=== PATIENT | female | born 1975 | race Caucasian/White ===

== ENCOUNTER 2016-08-17 08:52 | Day surgery (SDC) | payer BC, OTHER ==
[2016-08-17] MEDS ORDERED: LIDOCAINE HCL 1%/EPI 1:100,000 - 20 ML VIAL ONE (09:30)
[2016-08-17] MEDS ORDERED: SODIUM BICARBONATE 8.4% - 50 ML VIAL ONE (09:31)
--- NOTE | 2016-08-17 10:29 | GEN.OPNOTE ---
Operative Note Surgery Date: 08/17/16 Preoperative Diagnosis: 1 cm skin lesion left lower leg. Postoperative Diagnosis: 1 cm skin lesion left lower leg. Procedure: Excision 1 cm skin lesion left lower leg. Surgeon: Rodolfo Perez MD Anesthesia Type: Local (1% Xylocaine with epinephrine and sodium bicarbonate.) Estimated Blood Loss (mL): 2 Fluids: No IV started. Pathology: Specimen to pathology. Short stitch superior and long stitch lateral. Indications: Cracking and scaling skin lesion left lower lateral leg for surgical excision. Findings: Skin lesion as above. Complications: None. Operative Summary: The patient was taken to the operating room and placed on the operating table in the supine position. Surgical timeout was done. The area was infiltrated with 1% Xylocaine with epinephrine and sodium bicarbonate. An elliptical incision was made to excise the entire lesion. This was carried down into the subcutaneous tissue. The specimen was amputated and marked with a short stitch superiorly and a long stitch laterally. Hemostasis was assured. The skin edges were undermined. The deep dermis was closed with inverted interrupted 2-0 Vicryl's. The skin was closed with running interlocking 3-0 Prolene followed by Mastisol Steri-Strips and an appropriate dressing. The patient tolerated the procedure well without complication. She was taken to outpatient surgery in stable condition. All counts were correct.
[2016-08-17 10:31] VITALS: RESP 14; TEMP 97.8
== END 2016-08-17 10:40 | disposition home or self-care (01) ==
LOC: SDSC 08:52
PROVIDERS: ATTEND Surgery
DX: L82.1 Other seborrheic keratosis (principal)